=== PATIENT | male | born 1965 | race Caucasian/White ===

== ENCOUNTER 2018-09-13 08:21 | Inpatient (IN) | payer MEDICARE, MEDICAID ==
[~2018-09-13] VITALS: Ht 172.7 cm; Wt 80.2 kg
[2018-09-13] MEDS ORDERED: LORazepam 2 MG/ML VIAL ONE (08:24)
[2018-09-13] MEDS ORDERED: LORazepam 2 MG/ML VIAL IVP ONE (08:45)
[2018-09-13 09:34] LABS: BASOPHILS % (AUTO) 0.5 % (0.0-2.0); EOSINOPHILS % (AUTO) 0.1 % (1.0-6.0); HEMOGLOBIN 12.4 g/dL (13.5-17.5); LYMPHOCYTES # (AUTO) 0.5 K/uL (1.0-4.8); LYMPHOCYTES % (AUTO) 5.3 % (22.0-44.0); MEAN CORPUSCULAR HEMOGLOBIN 26.8 pg (26.0-34.0); MEAN CORPUSCULAR HGB CONC 31.8 G/dL (31.0-37.0); MEAN CORPUSCULAR VOLUME 84 fL (80-100); MONOCYTES # (AUTO) 0.2 K/uL (0.1-1.0); MONOCYTES % (AUTO) 2.4 % (2.0-9.0); NEUTROPHILS # (AUTO) 9.1 K/uL (1.8-7.7); PLATELET COUNT (AUTO) 274 K/uL (150-450); RED BLOOD CELL COUNT(AUTO) 4.63 MIL/uL (4.50-5.90); RED CELL DISTRIBUTION WIDTH 19.1 % (11.5-14.5)
[2018-09-13 09:38] LABS: NEUTROPHILS % (AUTO) 91.7 % (40.0-70.0)
[2018-09-13] MEDS ORDERED: SEIZURE MED (09:42)
[2018-09-13 09:50] LABS: CALCIUM, TOTAL 8.8 mg/dL (8.8-10.5); CREATININE 1.58 mg/dL (0.60-1.30); POTASSIUM 3.3 mmol/L (3.5-5.1)
[2018-09-13 09:58] LABS: ALBUMIN 3.7 g/dL (3.4-5.0); BILIRUBIN,TOTAL 0.3 mg/dL (0.1-1.0); TOTAL PROTEIN, SERUM 8.3 g/dL (6.4-8.2)
[2018-09-13] MEDS ORDERED: LevETIRAcetam 1,000 MG in DEXTROSE 5%-WATER 100 ML IV ONE (10:30)
[2018-09-13] MEDS ORDERED: ONDANSETRON HCL 4 MG/2 ML VIAL IVP PRN (10:45)
[2018-09-13] MEDS ORDERED: SODIUM CHLORIDE 0.9% 1,000 ML IV ONE (10:45)
[2018-09-13] MEDS ORDERED: ACETAMINOPHEN 325 MG TABLET PO PRN ×2 (10:45→11:00)
[2018-09-13] MEDS ORDERED: 0.9% SODIUM CHLORIDE 10 ML SYRINGE IVP PRN (10:45)
[2018-09-13] MEDS ORDERED: OxyCODONE HCL/ACETAMINOPHEN 5-325 MG TABLET PO PRN (11:00)
[2018-09-13] MEDS ORDERED: MAGNESIUM SULFATE 2 GM/WATER 50 ML IV ONE (11:00)
[2018-09-13] MEDS: ChlordiazePOXIDE HCL 25 MG CAPSULE PO SCH ×3 (11:07→21:36)
[2018-09-13] MEDS: PANTOPRAZOLE SODIUM 40 MG/VIAL IVP SCH (11:07)
[2018-09-13] MEDS: HEPARIN SODIUM,PORCINE 5,000 UNITS/ML VIAL SQ SCH ×2 (11:07→17:00)
[2018-09-13] MEDS: MAGNESIUM SULFATE 2 GM, MVI, ADULT NO.1 WITH VIT K 10 ML, THIAMINE HCL 100 MG, FOLIC AC... IV SCH ×10 (11:12→21:53)
[2018-09-13 11:30] LABS: MAGNESIUM 1.6 mg/dL (1.80-2.40); THYROID STIMULATING HORMONE 3.94 uIU/mL (0.36-3.74)
[2018-09-13] MEDS: POTASSIUM CHL 20 MEQ/0.9% NS 1,000 ML IV SCH ×2 (11:36→21:54)
[2018-09-13 18:58] VITALS: BP 159/113
[2018-09-13 19:21] VITALS: BP 157/95
[2018-09-13] MEDS ORDERED: LevETIRAcetam 500 MG in DEXTROSE 5%-WATER 100 ML IV SCH ×4 (22:00)
[2018-09-13] MEDS: LevETIRAcetam 500 MG in DEXTROSE 5%-WATER 100 ML IV SCH (22:13)
[2018-09-13 23:53] VITALS: BP 142/90
[2018-09-14] MEDS ORDERED: PNEUMOCOCCAL VACCINE POLYVALENT 0.5 ML VIAL [PPSV23] IM ONE (00:30)
[2018-09-14] MEDS: HEPARIN SODIUM,PORCINE 5,000 UNITS/ML VIAL SQ SCH ×3 (00:42→16:35)
[2018-09-14 04:27] VITALS: BP 132/77
[2018-09-14 06:09] LABS: EOSINOPHILS % (AUTO) 2.9 % (1.0-6.0); HEMATOCRIT 31.2 % (41-53); HEMOGLOBIN 10.5 g/dL (13.5-17.5); LYMPHOCYTES # (AUTO) 1.1 K/uL (1.0-4.8); MEAN CORPUSCULAR HEMOGLOBIN 27.1 pg (26.0-34.0); MEAN CORPUSCULAR HGB CONC 33.7 G/dL (31.0-37.0); MEAN CORPUSCULAR VOLUME 80 fL (80-100); MONOCYTES # (AUTO) 0.5 K/uL (0.1-1.0); MONOCYTES % (AUTO) 10.4 % (2.0-9.0); NEUTROPHILS # (AUTO) 2.8 K/uL (1.8-7.7); NEUTROPHILS % (AUTO) 60.7 % (40.0-70.0); PLATELET COUNT (AUTO) 192 K/uL (150-450); RED BLOOD CELL COUNT(AUTO) 3.89 MIL/uL (4.50-5.90); RED CELL DISTRIBUTION WIDTH 19.4 % (11.5-14.5)
[2018-09-14 06:29] LABS: ALANINE AMINOTRANSFERASE 19 U/L (12-78); ALBUMIN 2.8 g/dL (3.4-5.0); ALKALINE PHOSPHATASE 90 U/L (46-116); ANION GAP 10 mmol/L (8-16); ASPARTATE AMINOTRANSFERASE 27 U/L (15-37); BILIRUBIN,TOTAL 0.6 mg/dL (0.1-1.0); CALCIUM, TOTAL 7.5 mg/dL (8.8-10.5); CARBON DIOXIDE 26 mmol/L (22-29); CHLORIDE 103 mmol/L (98-107); CREATININE 1.01 mg/dL (0.60-1.30); GLOMERULAR FILTR. RATE CALC > 60 mL/min (>60); GLUCOSE,RANDOM 113 mg/dL (70-110); SODIUM SERUM 139 mmol/L (136-145); TOTAL PROTEIN, SERUM 6.2 g/dL (6.4-8.2); UREA NITROGEN, BLOOD 7 mg/dL (7-18)
[2018-09-14 07:20] VITALS: BP 145/88
[2018-09-14 07:34] LABS: GLUCOMETER DEV NAME(LOC) 5N.2; GLUCOSE,POINT OF CARE 110 MG/DL (70-110)
[2018-09-14 07:40] LABS: POTASSIUM 2.8 mmol/L (3.5-5.1)
[2018-09-14] MEDS ORDERED: POTASSIUM CHLORIDE 20 MEQ ER TABLET PO PRN (08:30)
[2018-09-14] MEDS: MAGNESIUM SULFATE 2 GM, MVI, ADULT NO.1 WITH VIT K 10 ML, THIAMINE HCL 100 MG, FOLIC AC... IV SCH ×10 (08:49→18:27)
[2018-09-14] MEDS: ChlordiazePOXIDE HCL 25 MG CAPSULE PO SCH ×3 (08:50→21:07)
[2018-09-14] MEDS: PANTOPRAZOLE SODIUM 40 MG/VIAL IVP SCH (08:50)
[2018-09-14] MEDS ORDERED: SODIUM CHLORIDE 0.9% 250 ML IV ONE (09:08)
[2018-09-14] MEDS: POTASSIUM CHL 10 MEQ/WATER 50 ML IV PRN ×4 (09:21→16:32)
[2018-09-14] MEDS: LevETIRAcetam 500 MG in DEXTROSE 5%-WATER 100 ML IV SCH ×2 (11:10→21:08)
[2018-09-14 12:04] VITALS: BP 169/93
[2018-09-14 14:50] LABS: GLUCOMETER DEV NAME(LOC) 5N.1; GLUCOSE,POINT OF CARE 140 MG/DL (70-110)
[2018-09-14 15:29] VITALS: BP 131/82
[2018-09-14] MEDS: POTASSIUM CHL 20 MEQ/0.9% NS 1,000 ML IV SCH ×2 (18:27→18:31)
[2018-09-14 19:38] VITALS: BP 125/80
[2018-09-14 20:54] LABS: GLUCOMETER DEV NAME(LOC) 5N.2; GLUCOSE,POINT OF CARE 86 MG/DL (70-110)
[2018-09-15] VITALS (7 sets, daily range): BP systolic 132–151; BP diastolic 81–102
[2018-09-15] MEDS: HEPARIN SODIUM,PORCINE 5,000 UNITS/ML VIAL SQ SCH ×4 (00:30→23:08)
[2018-09-15] MEDS: POTASSIUM CHL 20 MEQ/0.9% NS 1,000 ML IV SCH ×2 (03:00→23:00)
[2018-09-15] MEDS: MAGNESIUM SULFATE 2 GM, MVI, ADULT NO.1 WITH VIT K 10 ML, THIAMINE HCL 100 MG, FOLIC AC... IV SCH ×10 (03:40→14:29)
[2018-09-15] MEDS: LORazepam 2 MG/ML VIAL IVP PRN ×5 (04:22→23:18)
[2018-09-15 06:20] LABS: GLUCOMETER DEV NAME(LOC) 5N.1; GLUCOSE,POINT OF CARE 102 MG/DL (70-110)
[2018-09-15 06:24] LABS: GLUCOMETER DEV NAME(LOC) 5N.2; GLUCOSE,POINT OF CARE 95 MG/DL (70-110)
[2018-09-15 07:49] LABS: ALANINE AMINOTRANSFERASE 28 U/L (12-78); ALBUMIN 3.1 g/dL (3.4-5.0); ALKALINE PHOSPHATASE 97 U/L (46-116); ANION GAP 10 mmol/L (8-16); ASPARTATE AMINOTRANSFERASE 39 U/L (15-37); BILIRUBIN,TOTAL 0.4 mg/dL (0.1-1.0); CALCIUM, TOTAL 8.2 mg/dL (8.8-10.5); CARBON DIOXIDE 25 mmol/L (22-29); CHLORIDE 103 mmol/L (98-107); GLOMERULAR FILTR. RATE CALC > 60 mL/min (>60); GLUCOSE,RANDOM 99 mg/dL (70-110); POTASSIUM 3.8 mmol/L (3.5-5.1); SODIUM SERUM 138 mmol/L (136-145); TOTAL PROTEIN, SERUM 6.7 g/dL (6.4-8.2); UREA NITROGEN, BLOOD 5 mg/dL (7-18)
[2018-09-15] MEDS: ChlordiazePOXIDE HCL 25 MG CAPSULE PO SCH ×3 (08:56→20:01)
[2018-09-15] MEDS: PANTOPRAZOLE SODIUM 40 MG/VIAL IVP SCH (10:18)
[2018-09-15] MEDS: LevETIRAcetam 500 MG in DEXTROSE 5%-WATER 100 ML IV SCH ×2 (10:40→23:08)
[2018-09-15] MEDS: THIAMINE HCL 100 MG TABLET PO SCH (12:09)
[2018-09-15 18:14] LABS: GLUCOMETER DEV NAME(LOC) 5N.1; GLUCOSE,POINT OF CARE 136 MG/DL (70-110)
[2018-09-16] VITALS (7 sets, daily range): BP systolic 117–157; BP diastolic 79–109
[2018-09-16] MEDS: POTASSIUM CHL 20 MEQ/0.9% NS 1,000 ML IV SCH ×2 (00:30→07:43)
[2018-09-16] MEDS: MAGNESIUM SULFATE 2 GM, MVI, ADULT NO.1 WITH VIT K 10 ML, THIAMINE HCL 100 MG, FOLIC AC... IV SCH ×15 (01:44→23:10)
[2018-09-16] MEDS: LORazepam 2 MG/ML VIAL IVP PRN (03:26)
[2018-09-16 08:09] LABS: ANION GAP 10 mmol/L (8-16); CALCIUM, TOTAL 8.8 mg/dL (8.8-10.5); CARBON DIOXIDE 24 mmol/L (22-29); CHLORIDE 106 mmol/L (98-107); CREATININE 1.12 mg/dL (0.60-1.30); GLOMERULAR FILTR. RATE CALC > 60 mL/min (>60); GLUCOSE,RANDOM 111 mg/dL (70-110); POTASSIUM 3.8 mmol/L (3.5-5.1); SODIUM SERUM 140 mmol/L (136-145); UREA NITROGEN, BLOOD 8 mg/dL (7-18)
[2018-09-16] MEDS: HEPARIN SODIUM,PORCINE 5,000 UNITS/ML VIAL SQ SCH ×2 (08:10→15:43)
[2018-09-16] MEDS: THIAMINE HCL 100 MG TABLET PO SCH (08:10)
[2018-09-16] MEDS: ChlordiazePOXIDE HCL 25 MG CAPSULE PO SCH ×3 (08:10→21:05)
[2018-09-16] MEDS: FOLIC ACID 1 MG TABLET PO SCH (08:10)
[2018-09-16] MEDS: PANTOPRAZOLE SODIUM 40 MG/VIAL IVP SCH (08:10)
[2018-09-16 09:39] LABS: GLUCOMETER DEV NAME(LOC) 5N.2; GLUCOSE,POINT OF CARE 125 MG/DL (70-110)
[2018-09-16 10:05] LABS: GLUCOMETER DEV NAME(LOC) 5N.1; GLUCOSE,POINT OF CARE 114 MG/DL (70-110)
[2018-09-16] MEDS: LevETIRAcetam 500 MG in DEXTROSE 5%-WATER 100 ML IV SCH ×2 (10:55→22:11)
[2018-09-16 12:30] LABS: GLUCOMETER DEV NAME(LOC) 5N.2; GLUCOSE,POINT OF CARE 116 MG/DL (70-110)
[2018-09-16] MEDS ORDERED: GADOBUTROL 1 MMOL/ML 10 ML VIAL IVP ONE (14:53)
[2018-09-16] MEDS ORDERED: DEXTROSE 50%-WATER 25 GM/50 ML SYRINGE IVP PRN (21:30)
[2018-09-16] MEDS: INSULIN LISPRO 100 UNITS/ML SQ PRN (22:11)
[2018-09-17] MEDS: HEPARIN SODIUM,PORCINE 5,000 UNITS/ML VIAL SQ SCH ×2 (00:17→08:38)
[2018-09-17 00:56] LABS: GLUCOMETER DEV NAME(LOC) 6N.2; GLUCOSE,POINT OF CARE 153 MG/DL (70-110)
[2018-09-17 03:55] LABS: GLUCOMETER DEV NAME(LOC) 5N.2; GLUCOSE,POINT OF CARE 130 MG/DL (70-110)
[2018-09-17 03:55] LABS: GLUCOMETER DEV NAME(LOC) 5N.2; GLUCOSE,POINT OF CARE 137 MG/DL (70-110)
[2018-09-17 05:40] VITALS: BP 149/98
[2018-09-17 06:35] LABS: GLUCOMETER DEV NAME(LOC) 6N.2; GLUCOSE,POINT OF CARE 121 MG/DL (70-110)
[2018-09-17 07:10] VITALS: BP 149/96
[2018-09-17] MEDS: THIAMINE HCL 100 MG TABLET PO SCH (08:38)
[2018-09-17] MEDS: PANTOPRAZOLE SODIUM 40 MG/VIAL IVP SCH (08:38)
[2018-09-17] MEDS: FOLIC ACID 1 MG TABLET PO SCH (08:38)
[2018-09-17] MEDS: ChlordiazePOXIDE HCL 25 MG CAPSULE PO SCH (08:38)
[2018-09-17] MEDS: LevETIRAcetam 500 MG in DEXTROSE 5%-WATER 100 ML IV SCH (10:34)
[2018-09-17] MEDS ORDERED: LIB25 PO ×2 (11:19→11:20)
[2018-09-17] MEDS ORDERED: LIB10 PO (11:20)
[2018-09-17] MEDS ORDERED: LIB5 PO (11:21)
[2018-09-17] MEDS ORDERED: LEVE500T53 PO (11:22)
[2018-09-17] MEDS ORDERED: FOLI1TAB15 PO (11:22)
[2018-09-17] MEDS ORDERED: THIA100T67 PO (11:22)
[2018-09-17 11:29] VITALS: BP 152/86
[2018-09-17] MEDS: INSULIN LISPRO 100 UNITS/ML SQ PRN (11:33)
[2018-09-17 13:43] LABS: GLUCOMETER DEV NAME(LOC) 6N.1; GLUCOSE,POINT OF CARE 101 MG/DL (70-110)
== END 2018-09-17 13:20 | disposition home or self-care (01) | DRG 100 ==
LOC: EMS 08:22 → 5S 18:02 → EMS 18:05 → 5N 19:10 → 6N 09-16 20:40
PROVIDERS: ADMIT Internal Medicine; ATTEND Internal Medicine
DX: G40.89 Other seizures (principal); N17.0 Acute kidney failure with tubular necrosis; E51.2 Wernicke's encephalopathy; F10.239 Alcohol dependence with withdrawal, unspecified; N18.9 Chronic kidney disease, unspecified; E87.6 Hypokalemia; I25.10 Atherosclerotic heart disease of native coronary artery without angina pectoris; I12.9 Hypertensive chronic kidney disease with stage 1 through stage 4 chronic kidney disease, or unspecified chronic kidney disease; E11.22 Type 2 diabetes mellitus with diabetic chronic kidney disease; Z91.14 Patient's other noncompliance with medication regimen
CPT/HCPCS: 70450; 70553; 82948; 83735; 84132; 84443; 90686; 90732; 93005; 96365; 96366; 96368; 96375; 99291; A9585; C9113; G0378; G0480; J0712; J1644; J2060; J3411; J3475; J3480; J3490; J7030; J7050; J7060